=== PATIENT | male | born 1950 | race Caucasian/White ===

== ENCOUNTER 2017-05-10 07:19 | Emergency (ER) | payer MEDICARE, MEDICAID ==
[~2017-05-10] VITALS: Ht 182.9 cm; Wt 98.0 kg
[~2017-05-10 07:19] MED LIST: AMLO5TAB PO; BISO1TAB39 PO; LIT300C PO; LOPE2TAB25 PO; MIRT45TA PO; QUET300T3 PO; RANI150T8 PO; SIMV20TA5 PO; TEMA15CA5 PO
[2017-05-10 07:21] VITALS: BP 145/84
[2017-05-10] MEDS ORDERED: CEPH-572 PO (07:40)
== END 2017-05-10 07:48 | disposition home or self-care (01) ==
LOC: ER 07:20
DX: L76.82 Other postprocedural complications of skin and subcutaneous tissue (principal); I10 Essential (primary) hypertension; G89.29 Other chronic pain; F17.210 Nicotine dependence, cigarettes, uncomplicated
CPT/HCPCS: 99283; A6253; A6449

== ENCOUNTER 2018-01-17 08:04 | Emergency (ER) | payer MEDICARE, MEDICAID ==
[~2018-01-17] VITALS: Ht 182.9 cm; Wt 109.0 kg
[2018-01-17 08:19] VITALS: BP 144/72
[2018-01-17] MEDS ORDERED: TRIA15CR61 TOP (08:34)
[2018-01-17] MEDS ORDERED: FLUC150T66 PO (08:34)
== END 2018-01-17 08:42 | disposition home or self-care (01) ==
LOC: ER 08:04
DX: B35.3 Tinea pedis (principal); R23.4 Changes in skin texture; I10 Essential (primary) hypertension; G89.29 Other chronic pain; Z98.890 Other specified postprocedural states; Z88.8 Allergy status to other drugs, medicaments and biological substances; Z79.899 Other long term (current) drug therapy
CPT/HCPCS: 99283

== ENCOUNTER 2018-05-21 06:55 | Inpatient (IN) | payer MEDICARE, MEDICAID ==
[~2018-05-21] VITALS: Ht 180.3 cm; Wt 106.0 kg
[~2018-05-21 06:55] MED LIST changes: -QUET300T3 PO; +QUET300T5 PO
[2018-05-21] MEDS ORDERED: ondansetron/PF 4mg/2ml inj IV ONE (07:05)
[2018-05-21] MEDS ORDERED: morphine 4 MG/ML inj SYRINge IV PRN (07:05)
[2018-05-21] MEDS ORDERED: ketorolac tromethamine 15mg/ml inj. IV ONE (07:05)
[2018-05-21 07:47] LABS: BASOPHILS # (AUTO) 0.1 X10'3 (0-0.2); BASOPHILS % (AUTO) 0.3 % (0-1); EOSINOPHILS # (AUTO) 0.2 X10'3 (0-0.9); EOSINOPHILS % (AUTO) 1.1 % (0-6); HEMATOCRIT 47.1 % (42.0-52.0); HEMOGLOBIN 15.8 g/dl (14.0-17.9); LYMPHOCYTES # (AUTO) 2.6 X10'3 (1.1-4.8); LYMPHOCYTES % (AUTO) 15.9 % (21-51); MEAN CORPUSCULAR HGB CONC 33.4 g/dL (33.0-36.5); MEAN CORPUSCULAR VOLUME 89.7 FL (78-98); MEAN PLATELET VOLUME 7.8 FL (7.4-10.4); MONOCYTES # (AUTO) 1.2 X10'3 (0-0.9); MONOCYTES % (AUTO) 7.5 % (2-12); NEUTROPHILS # (AUTO) 12.5 X10'3 (1.8-7.7); NEUTROPHILS % (AUTO) 75.2 % (42-75); PLATELET COUNT 342 X10'3 (140-440); RED BLOOD COUNT 5.25 X10'6 (4.70-6.10); RED CELL DISTRIBUTION WIDTH 13.8 % (11.5-14.5); WHITE BLOOD COUNT 16.7 X10'3 (4.5-11.0)
[2018-05-21 07:53] LABS: ALANINE AMINOTRANSFERASE 42 U/L (12-78); ALBUMIN 4.1 G/DL (3.4-5.0); ALKALINE PHOSPHATASE 78 IU/L (46-116); ANION GAP 12 (8-16); ASPARTATE AMINO TRANSFERASE 17 U/L (10-37); BILIRUBIN,TOTAL 0.3 MG/DL (0.1-1.0); BLOOD UREA NITROGEN 22 MG/DL (7-18); BUN/CREATININE RATIO 20.2 (5.4-32.0); CALCIUM 10.1 MG/DL (8.5-10.1); CHLORIDE 106 MMOL/L (99-107); CREATININE 1.09 MG/DL (0.60-1.10); GLUCOSE 130 MG/DL (70-104); LIPASE 190 U/L (73-393); POTASSIUM 3.9 MMOL/L (3.5-5.1); SODIUM 142 MMOL/L (135-145); TOTAL CARBON DIOXIDE 24.5 MMOL/L (24-32); TOTAL PROTEIN 8.2 G/DL (6.4-8.2); eGFR 67 ML/MIN
[2018-05-21] MEDS ORDERED: piperacillin/tazo 3.375gm/50ml 50 ML IV ONE (08:15)
[2018-05-21] MEDS ORDERED: FENO145T38 PO (08:26)
[2018-05-21] MEDS ORDERED: magnesium 4gm in 100ml NS 100 ML IV PRN (08:30)
[2018-05-21] MEDS ORDERED: potassium Cl 20 mEq SR tablet PO PRN ×2 (08:30)
[2018-05-21] MEDS ORDERED: ondansetron/PF 4mg/2ml inj IV PRN (08:30)
[2018-05-21] MEDS ORDERED: potassium Cl 40MEQ/NS 500ml 500 ML IV PRN ×2 (08:30)
[2018-05-21] MEDS ORDERED: magnesium 2GM in 50ml NS 50 ML IV PRN (08:30)
[2018-05-21] MEDS ORDERED: morphine 2 MG/ML inj. syringe IV PRN (08:30)
[2018-05-21] MEDS ORDERED: magnesium Cl slow-release 64mg tablet PO PRN (08:30)
[2018-05-21 08:36] LABS: CLARITY,URINE CLEAR (Clear); COLOR,URINE YELLOW (Yellow); GLUCOSE, URINE NEGATIVE (Neg); KETONES,URINE NEGATIVE (Neg); LEUKOCYTE ESTERASE ,URINE NEGATIVE (Neg); NITRITES, URINE NEGATIVE (Neg); OCCULT BLOOD,URINE NEGATIVE (Neg); PH,URINE 5.5 (4.8-8.0); PROTEIN,URINE NEGATIVE (Neg); UA COLLECTION TYPE CLN CATCH MIDSTREAM; UROBILINOGEN,URINE 0.2 E.U/dL (0.2-1.0)
[2018-05-21] MEDS: normal saline 1000ml 1,000 ML IV SCH ×2 (08:41→21:03)
--- NOTE | 2018-05-21 14:18 | NUR ---
called to give report, was told that KELECHI Price can not be found, and they willhave her call me back
[2018-05-21 14:45] VITALS: BP 138/68
[2018-05-21] MEDS ORDERED: pantoprazole 40 MG vial IV ONE (15:30)
--- NOTE | 2018-05-21 15:53 | NUR ---
Paged Dr Thao PAGER ID: [phone] MESSAGE: Dee [phone]. Re Delfino Serrano.[id number] C/O headache, patient asking for ibuprofen. Only morphine ordered. Can you order ibuprofen or Tylenol?
[2018-05-21] MEDS: metroNIDAZOLE-Flagyl 500mg/NS 100 ML IV SCH (16:16)
[2018-05-21 17:00] VITALS: BP 130/89
--- NOTE | 2018-05-21 18:25 | NUR ---
Problems reprioritized. Patient report given, questions answered & plan of care reviewed with Lyndsey LORENZ.
[2018-05-21] MEDS ORDERED: HYDROcodone/acetaminophen 10/325mg tab PO PRN (19:25)
--- NOTE | 2018-05-21 19:28 | NUR ---
Patient in room ORTHO 4014. I have received report from KELECHI Price and had the opportunity to ask questions and assume patient care.
[2018-05-21] MEDS: HYDROcodone/acetaminophen 5mg/325mg tablet PO PRN (21:03)
[2018-05-21] MEDS: famotidine 20mg tablet PO SCH (21:21)
[2018-05-21 22:00] VITALS: BP 133/61
[2018-05-22] MEDS: normal saline 1000ml 1,000 ML IV SCH ×3 (04:30→22:48)
--- NOTE | 2018-05-22 06:49 | NUR ---
Patient report given to KELECHI Reid, questions answered & plan of care reviewed.
[2018-05-22 06:59] LABS: BASOPHILS % (AUTO) 0.5 % (0-1); EOSINOPHILS # (AUTO) 0.3 X10'3 (0-0.9); EOSINOPHILS % (AUTO) 2.7 % (0-6); HEMATOCRIT 44.2 % (42.0-52.0); LYMPHOCYTES # (AUTO) 3.5 X10'3 (1.1-4.8); MEAN CORPUSCULAR HEMOGLOBIN 30.6 PG (27.0-31.0); MEAN CORPUSCULAR HGB CONC 33.9 g/dL (33.0-36.5); MEAN CORPUSCULAR VOLUME 90.4 FL (78-98); MEAN PLATELET VOLUME 8.1 FL (7.4-10.4); MONOCYTES % (AUTO) 9.9 % (2-12); NEUTROPHILS # (AUTO) 5.4 X10'3 (1.8-7.7); NEUTROPHILS % (AUTO) 52.9 % (42-75); PLATELET COUNT 306 X10'3 (140-440); RED CELL DISTRIBUTION WIDTH 13.8 % (11.5-14.5); WHITE BLOOD COUNT 10.2 X10'3 (4.5-11.0)
--- NOTE | 2018-05-22 06:59 | NUR ---
Patient in room ORTHO 4014. I have received report from Adry LORENZ and Kiana LORENZ and had the opportunity to ask questions and assume patient care.
[2018-05-22 07:45] LABS: ALBUMIN 3.6 G/DL (3.4-5.0); ANION GAP 11 (8-16); BLOOD UREA NITROGEN 15 MG/DL (7-18); CALCIUM 9.3 MG/DL (8.5-10.1); CHLORIDE 110 MMOL/L (99-107); GLUCOSE 100 MG/DL (70-104); POTASSIUM 3.8 MMOL/L (3.5-5.1); SODIUM 144 MMOL/L (135-145); TOTAL CARBON DIOXIDE 23.5 MMOL/L (24-32); eGFR 74 ML/MIN
[2018-05-22] MEDS ORDERED: HYDROCHLOROTHIAZIDE PO SCH (08:00)
[2018-05-22] MEDS ORDERED: non-formulary drug (Amlodipine Besylate 2 TABLET) PO SCH (08:00)
[2018-05-22] MEDS: K and/or MAG REPLACEMENT MC SCH (08:00)
[2018-05-22] MEDS ORDERED: famotidine 20mg tablet PO SCH (08:00)
[2018-05-22] MEDS ORDERED: BISOPROL PO SCH (08:00)
[2018-05-22] MEDS: metroNIDAZOLE-Flagyl 500mg/NS 100 ML IV SCH ×2 (08:29)
[2018-05-22] MEDS: famotidine 20mg tablet PO SCH (08:32)
[2018-05-22] MEDS: amLODIPine 5mg tablet PO SCH (08:32)
[2018-05-22] MEDS: HYDROchlorothiazide 12.5mg capsule PO SCH (08:33)
[2018-05-22] MEDS: atenolol 50mg tablet PO SCH (08:38)
[2018-05-22] MEDS: HYDROcodone/acetaminophen 5mg/325mg tablet PO PRN ×2 (08:39→13:08)
[2018-05-22] MEDS: levoFLOXACIN-Levaquin 500mg/D5 100 ML IV SCH (08:41)
[2018-05-22 10:00] VITALS: BP 148/78
[2018-05-22] MEDS: metroNIDAZOLE 500mg tablet PO SCH ×2 (15:19→23:11)
--- NOTE | 2018-05-22 15:45 | NUR ---
Left Lateral Flank Pain is well controlled with One [place] 5/325mg Tab. every 4 hours.
[2018-05-22 17:00] VITALS: BP 126/71
[2018-05-22 18:00] VITALS: BP 126/71
--- NOTE | 2018-05-22 18:30 | NUR ---
Patient in room ORTHO 4014. I have received report from KELECHI Reid and had the opportunity to ask questions and assume patient care.
[2018-05-22] MEDS: lactobacillus rhamnosus 10,000 MMU CELLS/CAPSULE PO SCH (19:55)
[2018-05-22 22:00] VITALS: BP 148/71
[2018-05-22] MEDS ORDERED: temazepam 15mg capsule PO PRN (22:25)
--- NOTE | 2018-05-23 06:25 | NUR ---
Problems reprioritized. Patient report given, questions answered & plan of care reviewed with KELECHI Gonzalez.
[2018-05-23 06:53] LABS: BASOPHILS % (AUTO) 0.4 % (0-1); EOSINOPHILS # (AUTO) 0.3 X10'3 (0-0.9); EOSINOPHILS % (AUTO) 3.2 % (0-6); HEMATOCRIT 43.4 % (42.0-52.0); HEMOGLOBIN 14.7 g/dl (14.0-17.9); LYMPHOCYTES # (AUTO) 2.8 X10'3 (1.1-4.8); LYMPHOCYTES % (AUTO) 30.8 % (21-51); MEAN CORPUSCULAR HEMOGLOBIN 30.7 PG (27.0-31.0); MEAN CORPUSCULAR HGB CONC 33.8 g/dL (33.0-36.5); MEAN CORPUSCULAR VOLUME 90.8 FL (78-98); MEAN PLATELET VOLUME 7.8 FL (7.4-10.4); MONOCYTES # (AUTO) 0.8 X10'3 (0-0.9); MONOCYTES % (AUTO) 9.2 % (2-12); NEUTROPHILS # (AUTO) 5.1 X10'3 (1.8-7.7); NEUTROPHILS % (AUTO) 56.4 % (42-75); PLATELET COUNT 301 X10'3 (140-440); RED BLOOD COUNT 4.78 X10'6 (4.70-6.10); RED CELL DISTRIBUTION WIDTH 13.6 % (11.5-14.5); WHITE BLOOD COUNT 9.1 X10'3 (4.5-11.0)
[2018-05-23 07:04] LABS: ALBUMIN 3.4 G/DL (3.4-5.0); ANION GAP 12 (8-16); BLOOD UREA NITROGEN 14 MG/DL (7-18); CALCIUM 9.2 MG/DL (8.5-10.1); CHLORIDE 109 MMOL/L (99-107); GLUCOSE 92 MG/DL (70-104); MAGNESIUM 1.9 MG/DL (1.5-2.4); POTASSIUM 3.5 MMOL/L (3.5-5.1); SODIUM 144 MMOL/L (135-145); TOTAL CARBON DIOXIDE 22.9 MMOL/L (24-32); eGFR 74 ML/MIN
[2018-05-23] MEDS ORDERED: pantoprazole 40mg Tablet.DR PO SCH (07:30)
[2018-05-23 08:00] VITALS: BP_SYST 155
[2018-05-23] MEDS: HYDROchlorothiazide 12.5mg capsule PO SCH (08:00)
[2018-05-23] MEDS: atenolol 50mg tablet PO SCH (08:00)
[2018-05-23] MEDS: K and/or MAG REPLACEMENT MC SCH (08:00)
[2018-05-23] MEDS: levoFLOXACIN-Levaquin 500mg/D5 100 ML IV SCH (08:19)
[2018-05-23] MEDS: lactobacillus rhamnosus 10,000 MMU CELLS/CAPSULE PO SCH (08:19)
[2018-05-23] MEDS: metroNIDAZOLE 500mg tablet PO SCH (08:20)
[2018-05-23] MEDS: amLODIPine 5mg tablet PO SCH (08:28)
--- NOTE | 2018-05-23 11:45 | NUR ---
Received discharge orders. Chrystal social welfare clerk called in RX to [facility]. IV RFA dc'd with cannula intact. No redness/swelling at insertion site. Reviewed discharge instructions with pt. Pt discharged via w/c to front lobby to personal vehicle.
[2018-05-23] MEDS ORDERED: PANT40TA4 PO (11:59)
[2018-05-23] MEDS ORDERED: LEVO500T2 PO (11:59)
[2018-05-23] MEDS ORDERED: METR500T PO (11:59)
--- NOTE | 2018-05-23 18:36 | NUR ---
Pt d/c prior to RD visit for low-fiber diet guidelines r/t DX acute diverticulitis. Written ed w/ RD contact information mailed to pt home address on EMR. Addendum: 05/23/18 at [address] Amended: Links added.
== END 2018-05-23 12:50 | disposition home or self-care (01) | DRG 392 ==
LOC: ER 06:55 → ORTHO 4S 14:46 → CMPBEDREQ 05-23 01:25
PROVIDERS: ADMIT Internal Medicine; ATTEND Internal Medicine
DX: K57.92 Diverticulitis of intestine, part unspecified, without perforation or abscess without bleeding (principal); I10 Essential (primary) hypertension; K21.9 Gastro-esophageal reflux disease without esophagitis; E78.5 Hyperlipidemia, unspecified
CPT/HCPCS: 36415; 74176; 80048; 80053; 81003; 83690; 83735; 85025; 87070; 96365; 96375; 99285; C9113; G0378; J1885; J1956; J2270; J2405; J2543; J3490; J7030

== ENCOUNTER 2018-09-09 09:19 | Emergency (ER) | payer MEDICARE, MEDICAID ==
[~2018-09-09] VITALS: Ht 180.3 cm; Wt 101.0 kg
[~2018-09-09 09:19] MED LIST changes: +FENO145T38 PO; -LIT300C PO; -LOPE2TAB25 PO; +METR500T PO; -MIRT45TA PO; +PANT40TA4 PO; -QUET300T5 PO; -RANI150T8 PO; -SIMV20TA5 PO; -TEMA15CA5 PO
[2018-09-09] MEDS ORDERED: ketorolac trometh inj. 60 MG/2 ML VIAL IM ONE (09:40)
[2018-09-09 09:57] LABS: CLARITY,URINE CLEAR (Clear); COLOR,URINE YELLOW (Yellow); GLUCOSE, URINE NEGATIVE (Neg); KETONES,URINE NEGATIVE (Neg); LEUKOCYTE ESTERASE ,URINE NEGATIVE (Neg); NITRITES, URINE NEGATIVE (Neg); OCCULT BLOOD,URINE NEGATIVE (Neg); PROTEIN,URINE NEGATIVE (Neg); UROBILINOGEN,URINE 0.2 E.U/dL (0.2-1.0)
[2018-09-09 10:01] LABS: UA COLLECTION TYPE CLN CATCH MIDSTREAM
[2018-09-09 10:07] LABS: BASOPHILS # (AUTO) 0.1 X10'3 (0-0.2); BASOPHILS % (AUTO) 0.6 % (0-1); EOSINOPHILS # (AUTO) 0.1 X10'3 (0-0.9); EOSINOPHILS % (AUTO) 1.2 % (0-6); HEMATOCRIT 44.7 % (42.0-52.0); HEMOGLOBIN 15.1 g/dl (14.0-17.9); LYMPHOCYTES # (AUTO) 3.1 X10'3 (1.1-4.8); LYMPHOCYTES % (AUTO) 31.7 % (21-51); MEAN CORPUSCULAR HEMOGLOBIN 30.2 PG (27.0-31.0); MEAN CORPUSCULAR HGB CONC 33.7 g/dL (33.0-36.5); MEAN CORPUSCULAR VOLUME 89.7 FL (78-98); MEAN PLATELET VOLUME 7.7 FL (7.4-10.4); MONOCYTES # (AUTO) 0.8 X10'3 (0-0.9); MONOCYTES % (AUTO) 8.2 % (2-12); NEUTROPHILS # (AUTO) 5.6 X10'3 (1.8-7.7); NEUTROPHILS % (AUTO) 58.3 % (42-75); PLATELET COUNT 323 X10'3 (140-440); RED BLOOD COUNT 4.98 X10'6 (4.70-6.10); RED CELL DISTRIBUTION WIDTH 14.6 % (11.5-14.5); WHITE BLOOD COUNT 9.7 X10'3 (4.5-11.0)
[2018-09-09 10:21] LABS: ALANINE AMINOTRANSFERASE 40 U/L (12-78); ALBUMIN 3.9 G/DL (3.4-5.0); ALKALINE PHOSPHATASE 61 IU/L (46-116); ANION GAP 11 (8-16); ASPARTATE AMINO TRANSFERASE 17 U/L (10-37); BILIRUBIN,TOTAL 0.3 MG/DL (0.1-1.0); BLOOD UREA NITROGEN 16 MG/DL (7-18); BUN/CREATININE RATIO 16.2 (5.4-32.0); CALCIUM 8.9 MG/DL (8.5-10.1); CHLORIDE 108 MMOL/L (99-107); CREATININE 0.99 MG/DL (0.60-1.10); GLUCOSE 97 MG/DL (70-104); LIPASE 170 U/L (73-393); POTASSIUM 3.7 MMOL/L (3.5-5.1); SODIUM 143 MMOL/L (135-145); TOTAL CARBON DIOXIDE 24.1 MMOL/L (24-32); TOTAL PROTEIN 7.7 G/DL (6.4-8.2); eGFR 75 ML/MIN
[2018-09-09 11:03] VITALS: BP 134/87
== END 2018-09-09 11:21 | disposition home or self-care (01) ==
LOC: ER 09:20
DX: R10.814 Left lower quadrant abdominal tenderness (principal); M54.5 Low back pain; E78.00 Pure hypercholesterolemia, unspecified; I10 Essential (primary) hypertension; G89.29 Other chronic pain; F31.9 Bipolar disorder, unspecified; F12.90 Cannabis use, unspecified, uncomplicated; Z79.899 Other long term (current) drug therapy; Z98.890 Other specified postprocedural states
CPT/HCPCS: 36415; 74176; 80053; 81003; 83690; 85025; 96372; 99284; J1885

== ENCOUNTER 2018-12-01 10:19 | Emergency (ER) | payer MEDICARE, MEDICAID ==
[~2018-12-01] VITALS: Ht 180.3 cm; Wt 106.8 kg
[2018-12-01 10:23] VITALS: BP 120/66
[2018-12-01 11:29] LABS: BASOPHILS # (AUTO) 0.1 X10'3 (0-0.2); BASOPHILS % (AUTO) 0.5 % (0-1); EOSINOPHILS # (AUTO) 0.1 X10'3 (0-0.9); EOSINOPHILS % (AUTO) 0.8 % (0-6); HEMATOCRIT 44.4 % (42.0-52.0); HEMOGLOBIN 15.3 g/dl (14.0-17.9); LYMPHOCYTES # (AUTO) 3.6 X10'3 (1.1-4.8); LYMPHOCYTES % (AUTO) 32.9 % (21-51); MEAN CORPUSCULAR HEMOGLOBIN 30.9 PG (27.0-31.0); MEAN CORPUSCULAR HGB CONC 34.4 g/dL (33.0-36.5); MEAN CORPUSCULAR VOLUME 89.9 FL (78-98); MONOCYTES # (AUTO) 0.8 X10'3 (0-0.9); MONOCYTES % (AUTO) 7.3 % (2-12); NEUTROPHILS # (AUTO) 6.4 X10'3 (1.8-7.7); NEUTROPHILS % (AUTO) 58.5 % (42-75); PLATELET COUNT 347 X10'3 (140-440); RED BLOOD COUNT 4.94 X10'6 (4.70-6.10); RED CELL DISTRIBUTION WIDTH 13.4 % (11.5-14.5)
[2018-12-01 11:41] LABS: ALANINE AMINOTRANSFERASE 31 U/L (12-78); ALBUMIN 4.2 G/DL (3.4-5.0); ALKALINE PHOSPHATASE 70 IU/L (46-116); ANION GAP 13 (8-16); ASPARTATE AMINO TRANSFERASE 20 U/L (10-37); BILIRUBIN,TOTAL 0.5 MG/DL (0.1-1.0); BLOOD UREA NITROGEN 20 MG/DL (7-18); CALCIUM 9.4 MG/DL (8.5-10.1); CHLORIDE 107 MMOL/L (99-107); CREATININE 1.11 MG/DL (0.60-1.10); GLUCOSE 113 MG/DL (70-104); POTASSIUM 3.7 MMOL/L (3.5-5.1); SODIUM 144 MMOL/L (135-145); TOTAL CARBON DIOXIDE 23.9 MMOL/L (24-32); TOTAL PROTEIN 8.4 G/DL (6.4-8.2); eGFR 66 ML/MIN
[2018-12-01] MEDS ORDERED: HYDR25SU32 RC (11:57)
[2018-12-01] MEDS ORDERED: DOCU-148 PO (11:57)
== END 2018-12-01 12:17 | disposition home or self-care (01) ==
LOC: ER 10:20
DX: K92.2 Gastrointestinal hemorrhage, unspecified (principal); I25.10 Atherosclerotic heart disease of native coronary artery without angina pectoris; E78.00 Pure hypercholesterolemia, unspecified; I10 Essential (primary) hypertension; E11.9 Type 2 diabetes mellitus without complications; G89.29 Other chronic pain; F31.9 Bipolar disorder, unspecified; Z98.890 Other specified postprocedural states; Z87.891 Personal history of nicotine dependence; Z88.8 Allergy status to other drugs, medicaments and biological substances; Z79.899 Other long term (current) drug therapy
CPT/HCPCS: 36415; 80053; 85025; 99283

== ENCOUNTER 2018-12-10 07:15 | Emergency (ER) | payer MEDICARE, MEDICAID ==
[~2018-12-10] VITALS: Ht 180.3 cm; Wt 97.3 kg
[~2018-12-10 07:15] MED LIST changes: +DOCU-148 PO; +HYDR25SU32 RC
[2018-12-10] MEDS ORDERED: LORazepam 1 MG tablet PO ONE ×2 (07:45→09:55)
--- NOTE | 2018-12-10 07:45 | NUR ---
Pt brought over from Triage. He is angry over an argument he had with a sister that he lives with. He reports, "I have had SI for the past 20 years." He is pacing in the area of his bed.
--- NOTE | 2018-12-10 07:55 | NUR ---
Ativan 1mg given per orders from Dr. Mayfield.
[2018-12-10 08:22] LABS: CLARITY,URINE CLEAR (Clear); COLOR,URINE YELLOW (Yellow); GLUCOSE, URINE NEGATIVE (Neg); KETONES,URINE NEGATIVE (Neg); LEUKOCYTE ESTERASE ,URINE NEGATIVE (Neg); NITRITES, URINE NEGATIVE (Neg); OCCULT BLOOD,URINE NEGATIVE (Neg); PH,URINE 6.5 (4.8-8.0); PROTEIN,URINE NEGATIVE (Neg); UROBILINOGEN,URINE 0.2 E.U/dL (0.2-1.0)
[2018-12-10 08:23] LABS: UA COLLECTION TYPE CLN CATCH MIDSTREAM
--- NOTE | 2018-12-10 08:30 | NUR ---
Pt continues to sit at his bedside and verbally express his anger and frustrations going on with his sister. Encouraged him to lay down on his bed. Pt declined states, "when I'm upset it is better I pace."
[2018-12-10 08:34] LABS: URINE AMPHETAMINE SCREEN NEGATIVE (Neg); URINE BARBITUATE SCREEN NEGATIVE (Neg); URINE BENZODIAZEPINES SCREEN NEGATIVE (Neg); URINE CANNABINOID SCREEN POSITIVE (Neg); URINE COCAINE SCREEN NEGATIVE (Neg); URINE METHADONE SCREEN NEGATIVE (Neg); URINE OPIATE SCREEN NEGATIVE (Neg); URINE PHENCYCLIDINE SCREEN NEGATIVE (Neg)
[2018-12-10 08:39] LABS: BASOPHILS % (AUTO) 0.5 % (0-1); EOSINOPHILS # (AUTO) 0.1 X10'3 (0-0.9); EOSINOPHILS % (AUTO) 1.3 % (0-6); HEMATOCRIT 44.2 % (42.0-52.0); HEMOGLOBIN 15.4 g/dl (14.0-17.9); LYMPHOCYTES # (AUTO) 2.5 X10'3 (1.1-4.8); LYMPHOCYTES % (AUTO) 27.4 % (21-51); MEAN CORPUSCULAR HEMOGLOBIN 31.5 PG (27.0-31.0); MEAN CORPUSCULAR HGB CONC 34.9 g/dL (33.0-36.5); MEAN CORPUSCULAR VOLUME 90.3 FL (78-98); MEAN PLATELET VOLUME 7.8 FL (7.4-10.4); MONOCYTES # (AUTO) 0.8 X10'3 (0-0.9); MONOCYTES % (AUTO) 8.3 % (2-12); NEUTROPHILS # (AUTO) 5.8 X10'3 (1.8-7.7); NEUTROPHILS % (AUTO) 62.5 % (42-75); PLATELET COUNT 342 X10'3 (140-440); RED BLOOD COUNT 4.89 X10'6 (4.70-6.10); RED CELL DISTRIBUTION WIDTH 13.7 % (11.5-14.5); WHITE BLOOD COUNT 9.2 X10'3 (4.5-11.0)
[2018-12-10 08:54] LABS: ALANINE AMINOTRANSFERASE 28 U/L (12-78); ALBUMIN/GLOBULIN RATIO 0.9 (1.1-1.5); ALKALINE PHOSPHATASE 73 IU/L (46-116); ANION GAP 11 (8-16); ASPARTATE AMINO TRANSFERASE 18 U/L (10-37); BILIRUBIN,TOTAL 0.4 MG/DL (0.1-1.0); BLOOD UREA NITROGEN 13 MG/DL (7-18); BUN/CREATININE RATIO 12.3 (5.4-32.0); CALCIUM 9.4 MG/DL (8.5-10.1); CHLORIDE 106 MMOL/L (99-107); CREATININE 1.06 MG/DL (0.60-1.10); GLUCOSE 125 MG/DL (70-104); POTASSIUM 3.9 MMOL/L (3.5-5.1); SODIUM 142 MMOL/L (135-145); TOTAL CARBON DIOXIDE 24.9 MMOL/L (24-32); TOTAL PROTEIN 8.3 G/DL (6.4-8.2); eGFR 69 ML/MIN
[2018-12-10 09:04] LABS: ACETAMINOPHEN < 2.0 UG/ML (10-30); ETHANOL < 0.010 GM/DL (0.0-0.010)
[2018-12-10] MEDS ORDERED: haloperidol 5mg tablet PO ONE (09:50)
--- NOTE | 2018-12-10 09:54 | NUR ---
PACKET FAXED TO [facility]
[2018-12-10] MEDS ORDERED: diphenhydrAMINE 25mg capsule PO ONE (09:55)
--- NOTE | 2018-12-10 10:15 | NUR ---
Pt paces up and down at the side of his bed. Meds given as prescribed.
--- NOTE | 2018-12-10 12:30 | NUR ---
Pt sister agreed to bring in his Home Medications MAX. Pt is restless but quiet at his bedside.
[2018-12-10] MEDS ORDERED: FENO145T25 (13:11)
[2018-12-10] MEDS ORDERED: BISO-1 (13:11)
[2018-12-10] MEDS ORDERED: QUET50TA79 (13:11)
[2018-12-10] MEDS ORDERED: TEMA15CA (13:11)
[2018-12-10] MEDS ORDERED: RANI150T8 (13:11)
[2018-12-10] MEDS ORDERED: AMLO10TA13 (13:11)
[2018-12-10] MEDS ORDERED: AMLO2.5T4 PO (13:59)
[2018-12-10] MEDS ORDERED: BISO1TAB4 PO (14:01)
[2018-12-10] MEDS ORDERED: RANI150C4 PO (14:01)
[2018-12-10] MEDS ORDERED: TEMA15CA5 PO (14:01)
[2018-12-10] MEDS ORDERED: QUET50TA15 PO (14:02)
--- NOTE | 2018-12-10 14:30 | NUR ---
Patient resting comfortably. no needs at this time.
--- NOTE | 2018-12-10 17:31 | NUR ---
Pt's sister here with pt's home medications. Pt and his sister do not get along. There was an arguement regarding their house they inherited and the sister was asked to leave. Pt remains on his bed resting.
[2018-12-10] MEDS ORDERED: quetiapine 100mg tablet PO ONE (18:45)
[2018-12-10] MEDS ORDERED: temazepam 15mg capsule PO ONE (18:45)
--- NOTE | 2018-12-10 18:51 | NUR ---
This patient states he desires his nightime medications now. He is angry but cooperative. Patient is well oriented. This radio news writer spoke with ER MD Santos. Now orders recieved for patients Seroquel and an additional Restoril order was placed. Patients Seroquel dose for 2100 hours was cancelled. Patients 2100 hour dose of Restoril will remain in place and used PRN or DC'd at that time.
[2018-12-10] MEDS: famotidine 20mg tablet PO SCH (20:00)
[2018-12-10] MEDS ORDERED: QUEtiapine 25mg tablet PO SCH (21:00)
[2018-12-10] MEDS ORDERED: temazepam 15mg capsule PO SCH (21:00)
[2018-12-10] MEDS ORDERED: QUETIAPINE 50 MG PO SCH (21:00)
--- NOTE | 2018-12-11 00:49 | NUR ---
Patient is sleeping quietly, in view from nursing station. Second dose of Restoril held at this time.
--- NOTE | 2018-12-11 02:20 | NUR ---
Patient awakens, believes it is morning. States he has been sleeping well. Returns to sleep.
[2018-12-11 05:30] VITALS: BP 128/78
--- NOTE | 2018-12-11 06:49 | NUR ---
Client sleeping on left side in no apparent distress. Respirations are even and unlabored.
--- NOTE | 2018-12-11 07:44 | NUR ---
Pt is awake sitting quietly.
--- NOTE | 2018-12-11 07:54 | NUR ---
pt up to use restroom.
[2018-12-11] MEDS ORDERED: amLODIPine 5mg tablet PO SCH (08:00)
[2018-12-11] MEDS ORDERED: atenolol 50mg tablet PO SCH (08:00)
[2018-12-11] MEDS: famotidine 20mg tablet PO SCH (08:33)
--- NOTE | 2018-12-11 08:34 | NUR ---
Devyn from [facility] here speaking with client. Client states he feels better and may want to go home today.
--- NOTE | 2018-12-11 08:38 | NUR ---
[facility] note: Spoke with pt about voluntary admission. Pt states he feels better today and needs to go home to pay the bills. Pt states if when he is evaluated and they place him on a hold then he would like to come up. Dr Mckenzie states acceptance either way. Awaiting [facility] eval.
--- NOTE | 2018-12-11 09:14 | NUR ---
Patient is awake sitting quietly.
--- NOTE | 2018-12-11 10:28 | NUR ---
Pt sitting up in bed
--- NOTE | 2018-12-11 11:24 | NUR ---
Pt has been accepted at [facility] according to call form Nevin at [facility]
[2018-12-12] MEDS ORDERED: FENO145T25 PO (10:33)
== END 2018-12-11 13:23 ==
LOC: ER 07:16
DX: R45.851 Suicidal ideations (principal); I25.10 Atherosclerotic heart disease of native coronary artery without angina pectoris; E78.00 Pure hypercholesterolemia, unspecified; I10 Essential (primary) hypertension; E11.9 Type 2 diabetes mellitus without complications; G89.29 Other chronic pain; F31.9 Bipolar disorder, unspecified; Z98.890 Other specified postprocedural states; Z88.8 Allergy status to other drugs, medicaments and biological substances; Z79.899 Other long term (current) drug therapy
CPT/HCPCS: 36415; 80053; 80305; 80320; 80329; 81003; 84443; 85025; 99285; Q0163

== ENCOUNTER 2018-12-11 10:43 | Inpatient (IN) | payer MEDICARE, MEDICAID ==
[~2018-12-11] VITALS: Ht 180.3 cm; Wt 97.0 kg
[~2018-12-11 10:43] MED LIST changes: +AMLO2.5T4 PO; -AMLO5TAB PO; -BISO1TAB39 PO; +BISO1TAB4 PO; -DOCU-148 PO; -FENO145T38 PO; -HYDR25SU32 RC; -METR500T PO; -PANT40TA4 PO; +QUET50TA15 PO; +RANI150C4 PO; +TEMA15CA5 PO
[2018-12-11] MEDS ORDERED: NICOTINE POLACRILEX 2 MG LOZENGE BC PRN (12:20)
[2018-12-11] MEDS ORDERED: hydrOXYzine 25 MG tablet PO PRN (12:20)
[2018-12-11] MEDS ORDERED: mag hydrox/Alum hydrox/simeth 30ml oral suspension PO PRN (12:20)
[2018-12-11] MEDS ORDERED: magnesium hydroxide 30ml (MOM) UD suspension PO PRN (12:20)
[2018-12-11] MEDS ORDERED: loperamide 2mg capsule PO PRN (12:20)
[2018-12-11] MEDS ORDERED: LORazepam 1 MG tablet PO PRN (12:20)
[2018-12-11] MEDS ORDERED: acetaminophen 325mg tablet PO PRN ×2 (12:20)
--- NOTE | 2018-12-11 15:13 | NUR ---
Admission note: Pt admitted to [facility] on 5150 for DTS from our ER at 1323. Pt has suicidal ideation and a plan of running at a buffer copper so they would shoot him. Pt is impulsively giving his house away to his sister and nephews. Pt started selling his belongings. Pt does not have a good safety plan. Pt recently had an argument with his sister who lives with him in his inherited home. Pt stopped taking his Barber. Pt lost his psychologist recently and had not got a new one yet. Pt has history of [place], depression, Bipolar..
[2018-12-11 15:35] VITALS: BP 145/98
[2018-12-11] MEDS ORDERED: FLU VACC QS 2019-20 (6 MOS UP) 60 MCG/0.5 ML VIAL IMVAC ONE (15:45)
[2018-12-11 20:00] VITALS: BP 129/76
[2018-12-11] MEDS: QUEtiapine 25mg tablet PO SCH (20:14)
[2018-12-11] MEDS: famotidine 20mg tablet PO SCH (20:14)
[2018-12-11] MEDS: temazepam 15mg capsule PO SCH (20:14)
--- NOTE | 2018-12-12 03:42 | NUR ---
Nursing Progress Note: Delfino Serrano Legal hold: 5150 Exp 12/14 @ 1320 Client on involuntary status for DTS. Report received from KELECHI Shepard with use of SBAR. Why are they here: Patient is a 68-year-old male with bipolar disorder and depression who presents to the ED complaining of suicidal ideation with onset 2 days ago after getting into an argument with his sister. Pt states he has a plan of running to a newspaper copy editor so they would shoot him. Pt is impulsive giving his house away to his sister and nephew. Pt started selling his belongings. Pt does not have a good safety plan. Patient has been seeing a psychologist for the last 3 years for depression and suicidal thoughts. However, his psychologist recently stopped working and the patient has yet to establish with a new one. Patient reports that he stopped taking his lithium but is still taking his Seroquel. Assessment What has happened this shift: Pt was sitting in rec room watching T.V at shift change. Pt presents as linear, pleasant and cooperative. Pt denies SI at this time and doesn't engage with why he is here. Pt states "I got into an argument with my sister." "I helped raise my nephews." Pt denies A/VH. Pt appears to be minimizing his symptoms. 1:1 assessment completed at bedside. Pt medication compliant. Influenza vaccine administered to left deltoid. Pt c/o generalized pain, Tylenol administered. Pt reports some intermittent tingling in his toes - pt states he has been diagnosed with pre diabetes. S/I, H/I: Pt denies. A/VH: Pt denies. 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, no group Were meds taken: Medication compliant Any med S/E: None reported or observed Mental Status Exam Appearance: Clean, dressed appropriately in green unit scrubs Eye contact: Good Behavior: Cooperative, guarded Speech: Clear, normal rate and rythum Mood: Bright Affect: Blunted Thought process: Linear Thought Content: Unit orientation Cognition: A&O x4 Insight: Poor Judgment: Poor Interventions PRN's used: Tylenol Therapeutic interventions: 1:1 therapeutic assessment, maintained and established rapport, medication administration/education/monitoring, contracted for safety, Q15 min safety checks Restraints/seclusion/emergency medication: N/A Justification of Continued Inpatient Treatment: Pt needs medication adjustment and monitoring in a safe, therapeutic environment until stable.
[2018-12-12] MEDS: atenolol 50mg tablet PO SCH (07:45)
[2018-12-12] MEDS: HYDROchlorothiazide 25mg tablet PO SCH (07:45)
[2018-12-12] MEDS: amLODIPine 5mg tablet PO SCH (07:45)
[2018-12-12] MEDS: famotidine 20mg tablet PO SCH ×2 (07:45→20:16)
[2018-12-12] MEDS ORDERED: BISOPROLOL FUMARATE PO SCH (08:00)
[2018-12-12] MEDS ORDERED: HCTZ PO SCH (08:00)
[2018-12-12] MEDS ORDERED: HYDROchlorothiazide 12.5mg capsule PO SCH (08:00)
[2018-12-12 08:07] LABS: CHOL/HDL RATIO 5.1 (0.00-4.99); CHOLESTEROL 192 MG/DL (0-200); HDL CHOLESTEROL 38 MG/DL (35-60); LDL CHOLESTEROL 145 MG/DL (50-100); TRIGLYCERIDES 132 MG/DL (20-135)
[2018-12-12 08:20] VITALS: BP 160/83
[2018-12-12] MEDS ORDERED: FENO145T25 PO (10:33)
--- NOTE | 2018-12-12 13:45 | NUR ---
Nursing Progress Note: Legal hold: 5150 Exp 12/14 @ 1320 Client on involuntary status for DTS. Report received from KELECHI Mota with use of SBAR. Why are they here: Patient is a 68-year-old male with bipolar disorder and depression who presents to the ED complaining of suicidal ideation with onset 2 days ago after getting into an argument with his sister. Pt states he has a plan of running to a endoscopy nurse so they would shoot him. Pt is impulsive giving his house away to his sister and nephew. Pt started selling his belongings. Pt does not have a good safety plan. Patient has been seeing a psychologist for the last 3 years for depression and suicidal thoughts. However, his psychologist recently stopped working and the patient has yet to establish with a new one. Patient reports that he stopped taking his lithium but is still taking his Seroquel. Assessment What has happened this shift: Pt denied depression, SI/HI/AH/VH. Pt did c/o not sleeping well; reported falling asleep around 2200 then waking up at 0200 "then it was off and on again all night." Pt stated that its "been like this almost all my life." Pt indicated that he is here for medication adjustment, stated that the psychiatrist is going to increase his Seroquel. Pt reports that he lives with his sister and her 2 youngest boys. Pt stated, "I raised them from 8 and 9 years old, now they're 39 & 40 and still live there." Pt reported that he didn't feel this was necessarily a bad thing. S/I, H/I: Pt denies. A/VH: Pt denies. Sleep: Pt reported difficulty sleeping ADL's: Independent Group attendance: Yes Were meds taken: Yes though no routine psych meds scheduled in the morning-took his BP meds and his Pepcid. Any med S/E: None reported or observed Mental Status Exam Appearance: Clean, appropriate Eye contact: Good Behavior: Cooperative, friendly, participates in unit activities. Speech: Clear, normal rate and rhythm Mood: Good Affect: Blunted Thought process: Linear Thought Content: Hoping to get meds adjusted to help with insomnia Cognition: A&O x4 Insight: Poor Judgment: Fair Interventions PRN's used: N/A Therapeutic interventions: 1:1 assessment,establishment of rapport, encouragement to express thoughts and feelings, medication administration/education/monitoring, Q15 min safety checks Restraints/seclusion/emergency medication: N/A Justification of Continued Inpatient Treatment: Pt needs medication adjustment and monitoring in a safe, therapeutic environment until stable. Addendum: 12/12/18 at 1627 by Pastora Hightower RN (Lee) A1C results: 5.8
[2018-12-12 19:00] VITALS: BP 144/81
[2018-12-12] MEDS: QUEtiapine 25mg tablet PO SCH ×2 (20:16→21:00)
[2018-12-12] MEDS: temazepam 15mg capsule PO SCH (20:16)
[2018-12-12] MEDS ORDERED: temazepam 15mg capsule PO PRN (20:25)
[2018-12-12] MEDS ORDERED: QUEtiapine 25mg tablet PO ONE (20:40)
[2018-12-12] MEDS ORDERED: ibuprofen 200mg tablet PO PRN (20:40)
[2018-12-12] MEDS: metoprolol succinate 25mg (24-HOUR) SR. Tablet PO SCH (21:04)
[2018-12-12 21:18] VITALS: BP 150/80
[2018-12-12] MEDS: nitroGLYCERIN 0.4mg SUBLingual tab SL PRN ×3 (21:37→21:55)
[2018-12-12 23:30] VITALS: BP 105/60
--- NOTE | 2018-12-13 00:25 | NUR ---
Nursing Progress Note: Legal hold: 5150 Client on involuntary status for DTS Report received from nurse with use of SBAR: KELECHI Shepard Why are they here: Patient is a 68-year-old male with bipolar disorder and depression who self presents to the ED complaining of suicidal ideation with onset 2 days ago after getting into an argument with his sister. Pt states he has a plan of running to a freelance copywriter so they would shoot him. Pt is impulsive giving his house away to his sister and nephew. Pt started selling his belongings. Pt does not have a good safety plan. Patient has been seeing a psychologist for the last 3 years for depression and suicidal thoughts. However, his psychologist recently stopped working and the patient has yet to establish with a new one. Patient reports that he stopped taking his lithium but is still taking his Seroquel. He is on disability, has chronic pain, and multiple medical issues. Assessment What has happened this shift: Pt. sitting in the Recreation Room throughout the shift, watching TV and interacting appropriately with others. This commercial real estate underwriter introduced self and established rapport, pt. presents as cooperative, however guarded and requests HS medications MAX. He also requests PRN Motrin for chronic rt. hip pain, obtained order for 600mg TID, administered with effectiveness. At approximately 2114, pt. c/o substernal anterior chest pain with pressure 3/10. Notified Dr. Irene, and obtained V/S which were WNL. gave orders to obtain an EKG and administer SQ Nitroglycerin. Nurse also informed , that pt. reports he previously had a heart attack in 1993, has chronic angina, and uses Nitroglycerin at home. EKG read by and was WNL, no new orders given at this time. 3 doses of Nitroglycerin administered with five minutes between each per order protocol, and after third dose pt. denies any further chest pain. V/S remain WNL, will continue to monitor. 1:1 completed at bedside, pt. sitting on side of bed making "hussein" out of medication cups during assessment. He denies any further S/I at this time, states, "I want to live as long as my dad did, he was [age] years old when he ." He reports he is here on the unit because he got into an argument with his sister, states, "I would never hurt myself, it would only hurt my sister and her two sons," appears to minimize any MH s/s. Pt. reported intermittent lower back pain, PRN Tylenol administered with effectiveness. Pt. appears to be resting comfortably at this time, will continue to monitor. S/I, H/I: Denies A/VH: Denies Sleep: Pt. reports insomnia, requests PRN Temazepam, administered with effectiveness ADL's: Independent Group attendance: Attends HS snack Were meds taken: Yes Any med S/E: Pt. reports drowsiness r/t HS medications Mental Status Exam Appearance: Neat and appropriately dressed Eye contact: Fair Behavior: Cooperative, guarded, and slightly anxious at times Speech: WNL Mood: Depressed Affect: Constricted Thought process: Poverty of thought Thought Content: Appears to minimize any s/s and preoccupation with chronic pain Cognition: A&O X4 Insight: Poor Judgment: Poor Interventions PRN's used: Motrin, Tylenol, and Nitroglycerin Therapeutic interventions: Introduced self and established rapport, ensured contract for safety, maintained a safe and supportive environment, monitored behaviors and need for intervention, obtained orders for EKG and PRN Nitroglycerin, and maintained Q 15 min safety checks. Restraints/seclusion/emergency medication: N/A Justification of Continued Inpatient Treatment: Pt. requires interruption of current crisis, medication adjustments, and a safe and supportive environment.
[2018-12-13 07:30] VITALS: BP 139/75
[2018-12-13] MEDS: fenofibrate 145mg tablet PO SCH (07:49)
[2018-12-13] MEDS: famotidine 20mg tablet PO SCH ×2 (07:49→20:09)
[2018-12-13] MEDS: amLODIPine 5mg tablet PO SCH (07:49)
[2018-12-13] MEDS: atorvastatin 20mg tablet PO SCH (07:49)
[2018-12-13] MEDS: atenolol 50mg tablet PO SCH (07:50)
[2018-12-13] MEDS: metoprolol succinate 25mg (24-HOUR) SR. Tablet PO SCH (07:50)
[2018-12-13] MEDS: HYDROchlorothiazide 25mg tablet PO SCH (07:50)
--- NOTE | 2018-12-13 13:10 | NUR ---
Nursing Progress Note: Legal hold: 5150 Exp 12/14 @ 1320 Client on involuntary status for DTS. Report received from Nissa Alcaraz RN with use of SBAR. Why are they here: Patient is a 68-year-old male with bipolar disorder and depression who presents to the ED complaining of suicidal ideation with onset 2 days ago after getting into an argument with his sister. Pt states he has a plan of running to a junior copywriter so they would shoot him. Pt is impulsive giving his house away to his sister and nephew. Pt started selling his belongings. Pt does not have a good safety plan. Patient has been seeing a psychologist for the last 3 years for depression and suicidal thoughts. However, his psychologist recently stopped working and the patient has yet to establish with a new one. Patient reports that he stopped taking his lithium but is still taking his Seroquel. Assessment What has happened this shift: Pt denied depression, anxiety, SI/HI/AH/VH. Pt stated he feels "better" today. No c/o chest pain this shift. Pt requested to shower today, cooperative with meds and unit procedures. S/I, H/I: Pt denies. A/VH: Pt denies. Sleep: Pt slept 7 hours per noc shift report ADL's: Independent Group attendance: Yes Were meds taken: Yes though no routine psych meds scheduled in the morning-took his BP meds and his Pepcid. Any med S/E: None reported or observed Mental Status Exam Appearance: Clean, appropriate Eye contact: Good Behavior: Cooperative, friendly, participates in unit activities. Speech: Clear, normal rate and rhythm Mood: Good Affect: Euthymic Thought process: Linear Thought Content: Wants to go home. Cognition: A&O x4 Insight: Fair Judgment: Fair Interventions PRN's used: N/A Therapeutic interventions: 1:1 assessment,encouragement to express thoughts and feelings, therapeutic conversation, medication administration/education/monitoring, Q15 min safety checks Restraints/seclusion/emergency medication: N/A Justification of Continued Inpatient Treatment: Pt needs medication adjustment and monitoring in a safe, therapeutic environment until stable.
[2018-12-13 19:43] VITALS: BP 127/76
[2018-12-13] MEDS: QUEtiapine 25mg tablet PO SCH (20:10)
--- NOTE | 2018-12-13 23:15 | NUR ---
Nursing Progress Note: Legal hold: 5150 Exp 12/14 @ 1320 Client on involuntary status for DTS. Report received from KELECHI Shepard with use of SBAR. Why are they here: Patient is a 68-year-old male with bipolar disorder and depression who presents to the ED complaining of suicidal ideation with onset 2 days ago after getting into an argument with his sister. Pt states he has a plan of running to a copper plate printer so they would shoot him. Pt is impulsive giving his house away to his sister and nephew. Pt started selling his belongings. Pt does not have a good safety plan. Patient has been seeing a psychologist for the last 3 years for depression and suicidal thoughts. However, his psychologist recently stopped working and the patient has yet to establish with a new one. Patient reports that he stopped taking his lithium but is still taking his Seroquel. Assessment What has happened this shift: Pt watching football in rec room at change of shift. pt is pleasant to staff and other pt's and interacts appropriately. pt was friendly and talkative during 1:1 and now denies SI, stating, "I feel a lot better now." pt has plans to have a meeting with his sister and her sons to resolve their recent disagreements and he feels optimistic about it. Pt was compliant with meds. S/I, H/I: Pt denies. A/VH: Pt denies. Sleep: asleep now ADL's: Independent Group attendance: Yes Were meds taken: Yes Any med S/E: None reported or observed Mental Status Exam Appearance: Clean, appropriate Eye contact: Good Behavior: Cooperative, friendly Speech: Clear, normal rate and rhythm Mood: Good Affect: Euthymic Thought process: Linear Thought Content: Wants to go home. Cognition: A&O x4 Insight: Fair Judgment: Fair Interventions PRN's used: N/A Therapeutic interventions: 1:1 assessment,encouragement to express thoughts and feelings, therapeutic conversation, medication administration/education/monitoring, Q15 min safety checks Restraints/seclusion/emergency medication: N/A Justification of Continued Inpatient Treatment: Pt needs medication adjustment and monitoring in a safe, therapeutic environment until stable.
[2018-12-14 08:00] VITALS: BP 124/74
[2018-12-14] MEDS: famotidine 20mg tablet PO SCH ×2 (08:14→20:33)
[2018-12-14] MEDS: HYDROchlorothiazide 25mg tablet PO SCH (08:14)
[2018-12-14] MEDS: atenolol 50mg tablet PO SCH (08:15)
[2018-12-14] MEDS: metoprolol succinate 25mg (24-HOUR) SR. Tablet PO SCH (08:15)
[2018-12-14] MEDS: atorvastatin 20mg tablet PO SCH (08:15)
[2018-12-14] MEDS: fenofibrate 145mg tablet PO SCH (08:15)
[2018-12-14] MEDS: amLODIPine 5mg tablet PO SCH (08:15)
--- NOTE | 2018-12-14 16:47 | NUR ---
Nursing Progress Note: Legal hold: 5150 Exp 12/14 @ 1320 Client on involuntary status for DTS. Report received from KELECHI Cole with use of SBAR. Why are they here: Patient is a 68-year-old male with bipolar disorder and depression who presents to the ED complaining of suicidal ideation with onset 2 days ago after getting into an argument with his sister. Pt states he has a plan of running to a coper hand so they would shoot him. Pt is impulsive giving his house away to his sister and nephew. Pt started selling his belongings. Pt does not have a good safety plan. Patient has been seeing a psychologist for the last 3 years for depression and suicidal thoughts. However, his psychologist recently stopped working and the patient has yet to establish with a new one. Patient reports that he stopped taking his lithium but is still taking his Seroquel. Assessment What has happened this shift: Pt up and visible in the dayroom for breakfast. Pt denies suicidal thoughts and states he is much less depressed. After meeting with provider, pt signed voluntary and found out he was leaving tomorrow and he was super happy, sharing it with staff and peers and thanking staff for how well he was treated. Pt was supportive of his roommate who was emotional when he heard this pt was being dcd tomorrow. S/I, H/I: Pt denies. A/VH: Pt denies. Sleep: no napping ADL's: Independent Group attendance: Yes Were meds taken: Yes though no routine psych meds scheduled in the morning-took his BP meds and his Pepcid. Any med S/E: None reported or observed Mental Status Exam Appearance: Clean, appropriate Eye contact: Good Behavior: Cooperative, friendly, participates in unit activities. Speech: Clear, normal rate and rhythm Mood: Good Affect: Euthymic Thought process: Linear Thought Content: Wants to go home. Cognition: A&O x4 Insight: Fair Judgment: Fair Interventions PRN's used: N/A Therapeutic interventions: 1:1 assessment,encouragement to express thoughts and feelings, therapeutic conversation, medication administration/education/monitoring, Q15 min safety checks Restraints/seclusion/emergency medication: N/A Justification of Continued Inpatient Treatment: Pt needs medication adjustment and monitoring in a safe, therapeutic environment until stable.
[2018-12-14 20:00] VITALS: BP 142/76
[2018-12-14] MEDS: QUEtiapine 25mg tablet PO SCH (20:32)
--- NOTE | 2018-12-14 23:03 | NUR ---
Nursing Progress Note: Legal hold: 5150 Exp 12/14 @ 1320 Client on involuntary status for DTS. Report received from KELECHI Shepard with use of SBAR. Why are they here: Patient is a 68-year-old male with bipolar disorder and depression who presents to the ED complaining of suicidal ideation with onset 2 days ago after getting into an argument with his sister. Pt states he has a plan of running to a copper etcher so they would shoot him. Pt is impulsive giving his house away to his sister and nephew. Pt started selling his belongings. Pt does not have a good safety plan. Patient has been seeing a psychologist for the last 3 years for depression and suicidal thoughts. However, his psychologist recently stopped working and the patient has yet to establish with a new one. Patient reports that he stopped taking his lithium but is still taking his Seroquel. Assessment What has happened this shift: The patient was seen in the Rec room at shift change. He agreed to 1:1 at his bedside. He is calm, cooperative, and in a good mood related to his imminent discharge. The patient reports that he's feeling much better than before. "All I need now is a new therapist when I leave here." He still has issues to resolve with his sister, if he's going to remain living with her. The patient spent the evening watching TV in the group room, then went to bed after HS med pass. S/I, H/I: Denies. A/VH: Denies. Sleep: See sleep hours. ADL's: Independent Group attendance: No groups on weight shifter. Were meds taken: Yes Any med S/E: None reported or observed Mental Status Exam Appearance: Clean, appropriate, well groomed in street clothes. Eye contact: Direct Behavior: Cooperative, friendly Speech: Clear, normal rate and rhythm Mood: "Good" Affect: Euthymic Thought process: Linear Thought Content: Wants to go home. Cognition: A&O x4 Insight: Fair Judgment: Fair Interventions PRN's used: N/A Therapeutic interventions: 1:1 assessment,encouragement to express thoughts and feelings, therapeutic conversation, medication administration/education/monitoring, Q15 min safety checks Restraints/seclusion/emergency medication: N/A Justification of Continued Inpatient Treatment: Pt needs medication adjustment and monitoring in a safe, therapeutic environment until stable.
[2018-12-15] MEDS: amLODIPine 5mg tablet PO SCH (07:44)
[2018-12-15] MEDS: fenofibrate 145mg tablet PO SCH (07:44)
[2018-12-15] MEDS: atenolol 50mg tablet PO SCH (07:44)
[2018-12-15] MEDS: metoprolol succinate 25mg (24-HOUR) SR. Tablet PO SCH (07:45)
[2018-12-15] MEDS: atorvastatin 20mg tablet PO SCH (07:46)
[2018-12-15] MEDS: HYDROchlorothiazide 25mg tablet PO SCH (07:46)
[2018-12-15] MEDS: famotidine 20mg tablet PO SCH (07:46)
[2018-12-15 08:36] VITALS: BP 133/73
[2018-12-15] MEDS ORDERED: QUET25TA34 PO (08:55)
[2018-12-15] MEDS ORDERED: ATOR20TA66 PO (08:55)
[2018-12-15] MEDS ORDERED: ATEN50TA41 PO (08:55)
--- NOTE | 2018-12-15 09:58 | NUR ---
Client discharging home at 1000 hours this am. All belongings have been returned to client satisfaction. Client condition has improved since admission and he no longer is a danger to himself. Discharge plan is to go back to his residence that he occupies with a sister. Client has appointments made for follow up treatment and he is aware of date and provider.He verbally contracted for safe discharge practices and has resources in the event he is unable to control future impulses to harm himself. Client understands the need for continued medications and treatment. All discharge assessment and documentation were completed prior to discharge. Wound picture was taken and placed in chart. Client was escorted from the unit at 1000 hours by
== END 2018-12-15 10:00 | disposition home or self-care (01) | DRG 885 ==
LOC: ADULT MH 10:43
PROVIDERS: ADMIT Psychiatry & Neurology Psychiatry; ATTEND Psychiatry & Neurology Psychiatry
DX: F31.30 Bipolar disorder, current episode depressed, mild or moderate severity, unspecified (principal); R45.851 Suicidal ideations; Z23 Encounter for immunization; E78.1 Pure hyperglyceridemia; E78.5 Hyperlipidemia, unspecified; F17.210 Nicotine dependence, cigarettes, uncomplicated; F41.9 Anxiety disorder, unspecified; I10 Essential (primary) hypertension; I25.10 Atherosclerotic heart disease of native coronary artery without angina pectoris; F12.90 Cannabis use, unspecified, uncomplicated; K21.9 Gastro-esophageal reflux disease without esophagitis; Z88.8 Allergy status to other drugs, medicaments and biological substances; Z79.899 Other long term (current) drug therapy; Z81.8 Family history of other mental and behavioral disorders; Z82.49 Family history of ischemic heart disease and other diseases of the circulatory system
CPT/HCPCS: 36415; 80053; 80061; 80305; 80320; 80329; 81003; 83036; 84443; 85025; 87081; 99285; Q2037

== ENCOUNTER 2019-06-12 07:32 | Emergency (ER) | payer MEDICARE, MEDICAID ==
[~2019-06-12] VITALS: Ht 180.3 cm; Wt 100.0 kg
[~2019-06-12 07:32] MED LIST changes: +ATEN50TA41 PO; +ATOR20TA66 PO; +FENO145T25 PO; +QUET25TA34 PO; -QUET50TA15 PO
[2019-06-12 07:35] VITALS: BP 107/88
== END 2019-06-12 09:13 | disposition home or self-care (01) ==
LOC: ER 07:33
DX: H93.13 Tinnitus, bilateral (principal); H92.03 Otalgia, bilateral; I25.10 Atherosclerotic heart disease of native coronary artery without angina pectoris; E78.00 Pure hypercholesterolemia, unspecified; I10 Essential (primary) hypertension; E11.9 Type 2 diabetes mellitus without complications; G89.29 Other chronic pain; F31.9 Bipolar disorder, unspecified; Z98.890 Other specified postprocedural states; Z88.8 Allergy status to other drugs, medicaments and biological substances; Z79.899 Other long term (current) drug therapy
CPT/HCPCS: 99281

== ENCOUNTER 2019-12-31 07:30 | Emergency (ER) | payer MEDICARE, MEDICAID ==
[~2019-12-31] VITALS: Ht 182.9 cm; Wt 103.0 kg
[~2019-12-31 07:30] MED LIST changes: -ATEN50TA41 PO; -ATOR20TA66 PO; +GABA-530 PO; +NITR0.4T51 SL; +PANT-47 PO; +QUET100T33 PO; -QUET25TA34 PO; -RANI150C4 PO
[2019-12-31 09:07] LABS: CLARITY,URINE CLEAR (Clear); COLOR,URINE YELLOW (Yellow); GLUCOSE, URINE NEGATIVE (Neg); KETONES,URINE NEGATIVE (Neg); LEUKOCYTE ESTERASE ,URINE NEGATIVE (Neg); NITRITES, URINE NEGATIVE (Neg); OCCULT BLOOD,URINE NEGATIVE (Neg); PROTEIN,URINE NEGATIVE (Neg); UA COLLECTION TYPE CLN CATCH MIDSTREAM; UROBILINOGEN,URINE 0.2 E.U/dL (0.2-1.0)
--- NOTE | 2019-12-31 09:15 | NUR ---
agree with geneva's initial assessment
--- NOTE | 2019-12-31 10:00 | NUR ---
tish lee aware of pt's pain in his lower back, he wants to obtain ct and lab results first
[2019-12-31 10:49] LABS: BASOPHILS # (AUTO) 0.1 X10'3 (0-0.2); BASOPHILS % (AUTO) 0.6 % (0-1); EOSINOPHILS # (AUTO) 0.1 X10'3 (0-0.9); EOSINOPHILS % (AUTO) 1.3 % (0-6); HEMATOCRIT 45.1 % (42.0-52.0); HEMOGLOBIN 15.2 g/dl (14.0-17.9); LYMPHOCYTES # (AUTO) 2.9 X10'3 (1.1-4.8); MEAN CORPUSCULAR HEMOGLOBIN 29.7 PG (27.0-31.0); MEAN CORPUSCULAR HGB CONC 33.7 g/dL (33.0-36.5); MEAN CORPUSCULAR VOLUME 88.1 FL (78-98); MEAN PLATELET VOLUME 8.1 FL (7.4-10.4); MONOCYTES # (AUTO) 0.6 X10'3 (0-0.9); MONOCYTES % (AUTO) 6.8 % (2-12); NEUTROPHILS # (AUTO) 5.1 X10'3 (1.8-7.7); NEUTROPHILS % (AUTO) 58.3 % (42-75); PLATELET COUNT 358 X10'3 (140-440); RED BLOOD COUNT 5.12 X10'6 (4.70-6.10); RED CELL DISTRIBUTION WIDTH 15.7 % (11.5-14.5); WHITE BLOOD COUNT 8.7 X10'3 (4.5-11.0)
[2019-12-31 11:08] LABS: ALANINE AMINOTRANSFERASE 39 U/L (12-78); ALKALINE PHOSPHATASE 85 IU/L (46-116); ANION GAP 11 (8-16); ASPARTATE AMINO TRANSFERASE 23 U/L (10-37); BILIRUBIN,TOTAL 0.4 MG/DL (0.1-1.0); BLOOD UREA NITROGEN 17 MG/DL (7-18); BUN/CREATININE RATIO 16.3 (5.4-32.0); CALCIUM 9.3 MG/DL (8.5-10.1); CHLORIDE 108 MMOL/L (99-107); CREATININE 1.04 MG/DL (0.60-1.10); GLUCOSE 106 MG/DL (70-104); POTASSIUM 3.8 MMOL/L (3.5-5.1); SODIUM 143 MMOL/L (135-145); TOTAL CARBON DIOXIDE 23.9 MMOL/L (24-32); TOTAL PROTEIN 8.1 G/DL (6.4-8.2); eGFR 71 ML/MIN
[2019-12-31 11:15] VITALS: BP 128/60
[2019-12-31] MEDS ORDERED: LIDOcaine 5% patch TP ONE (11:15)
[2019-12-31] MEDS ORDERED: ibuprofen tablet 400 MG TABLET PO ONE (11:15)
[2019-12-31] MEDS ORDERED: LIDO700A32 TOP (11:30)
[2019-12-31] MEDS ORDERED: IBUP-1985 PO (11:30)
== END 2019-12-31 11:50 | disposition home or self-care (01) ==
LOC: ER 07:30
DX: M54.5 Low back pain (principal); R10.9 Unspecified abdominal pain; I25.10 Atherosclerotic heart disease of native coronary artery without angina pectoris; E78.00 Pure hypercholesterolemia, unspecified; E11.9 Type 2 diabetes mellitus without complications; I10 Essential (primary) hypertension; G89.29 Other chronic pain; Z98.890 Other specified postprocedural states; Z79.899 Other long term (current) drug therapy; Z88.8 Allergy status to other drugs, medicaments and biological substances
CPT/HCPCS: 36415; 74176; 80053; 81003; 85025; 99284

== ENCOUNTER 2021-10-12 00:06 | Emergency (ER) | payer MEDICARE, MEDICAID ==
[~2021-10-12 00:06] MED LIST changes: +BISO1TAB12 PO; -BISO1TAB4 PO; +IBUP-1985 PO; +LIDO700A32 TOP; -QUET100T33 PO; +QUET100T34 PO
== END 2021-10-12 02:30 | disposition left against medical advice (07) ==
LOC: ER 00:07
DX: N23 Unspecified renal colic (principal); Z53.21 Procedure and treatment not carried out due to patient leaving prior to being seen by health care provider

== ENCOUNTER 2023-06-06 06:47 | Emergency (ER) | payer MEDICARE, MEDICAID ==
[~2023-06-06] VITALS: Ht 182.9 cm; Wt 199.7 kg
[2023-06-06 06:51] VITALS: BP 135/67; PULSE 50; RESP 18; TEMP 97.5; O2SAT 99
[2023-06-06] MEDS ORDERED: AZIT-164 PO (08:24)
[2023-06-06] MEDS: azithromycin 250mg tablet PO ONE (08:40)
[2023-06-06] MEDS: Cipro HC otic suspension 10ML bottle RIGHT EAR SCH (08:40)
== END 2023-06-06 09:01 | disposition home or self-care (01) ==
LOC: ER 06:48
DX: H60.91 Unspecified otitis externa, right ear (principal); E78.00 Pure hypercholesterolemia, unspecified; I10 Essential (primary) hypertension; E11.9 Type 2 diabetes mellitus without complications; F32.A Depression, unspecified; I25.10 Atherosclerotic heart disease of native coronary artery without angina pectoris; Z88.8 Allergy status to other drugs, medicaments and biological substances; Z79.899 Other long term (current) drug therapy; Z79.2 Long term (current) use of antibiotics
CPT/HCPCS: 99283

== ENCOUNTER 2023-06-18 11:15 | Emergency (ER) | payer MEDICARE, MEDICAID ==
[~2023-06-18] VITALS: Ht 180.3 cm; Wt 91.8 kg
[~2023-06-18 11:15] MED LIST changes: +AZIT-164 PO
[2023-06-18 11:18] VITALS: BP 158/65; PULSE 52; O2SAT 97
[2023-06-18] MEDS ORDERED: AMOX-117 PO (12:33)
[2023-06-18] MEDS ORDERED: ACET10DR3 RIGHT EAR (12:33)
[2023-06-18 12:41] VITALS: RESP 18; TEMP 98.2
== END 2023-06-18 12:43 | disposition home or self-care (01) ==
LOC: ER 11:16
DX: H60.91 Unspecified otitis externa, right ear (principal); E78.00 Pure hypercholesterolemia, unspecified; I10 Essential (primary) hypertension; E11.9 Type 2 diabetes mellitus without complications; Z88.8 Allergy status to other drugs, medicaments and biological substances; Z79.899 Other long term (current) drug therapy; Z79.1 Long term (current) use of non-steroidal anti-inflammatories (NSAID); Z79.2 Long term (current) use of antibiotics
CPT/HCPCS: 99283

== ENCOUNTER 2024-09-27 10:21 | Emergency (ER) | payer MEDICARE, MEDICAID ==
[~2024-09-27] VITALS: Ht 182.9 cm; Wt 93.1 kg
[~2024-09-27 10:21] MED LIST changes: +ACET10DR3 RIGHT EAR; -AZIT-164 PO; -IBUP-1985 PO; +IBUP600T52 PO; +LIDO-52 TOP; -LIDO700A32 TOP
[2024-09-27 11:09] LABS: LEUKOCYTE ESTERASE ,URINE NEGATIVE (Neg); NITRITES, URINE NEGATIVE (Neg); OCCULT BLOOD,URINE NEGATIVE (Neg)
[2024-09-27 11:30] LABS: MEAN PLATELET VOLUME 7.7 FL (7.4-10.4); RED CELL DISTRIBUTION WIDTH 13.6 % (11.5-14.5)
[2024-09-27 11:39] LABS: UA COLLECTION TYPE CLN CATCH MIDSTREAM
--- NOTE | 2024-09-27 11:41 | ELECTROCARDIOGRAPH REPORT ---
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
[2024-09-27 11:58] LABS: CREATININE 1.17 MG/DL (0.60-1.10); TOTAL CARBON DIOXIDE 24.4 MMOL/L (24-32); eCRCL 61 ML/MIN; eGFR 61 ML/MIN
--- NOTE | 2024-09-27 12:08 | RADIOLOGY REPORT ---
EXAM: DI CHEST,SINGLE VIEW HISTORY: CP TECHNIQUE: 1 view of the chest COMPARISON: None FINDINGS/IMPRESSION: LUNGS: No pleural effusion, consolidation, or pneumothorax MEDIASTINUM: Unremarkable BONES: No acute osseous abnormality OTHER: None
[2024-09-27 12:24] LABS: PRO BRAIN NATRIURETIC PEPTIDE 35 PG/ML (0-125)
--- NOTE | 2024-09-27 12:41 | RADIOLOGY REPORT ---
Technique: Real-time ultrasound imaging of the abdomen was performed with grayscale and color Doppler . Indication: RUQ abd pain Comparison: CT ABDOMEN PELVIS on DOS: 12/31/19 Findings: Liver measures 21.1 cm. It is increased in echogenicity and echotexture . Overall suboptimal charac terization of the liver parenchyma. Hypoechoic lesion in the liver measuring 1.5 cm.. Portal vein is normal in caliber and demonstrates normal hepatopetal flow. Gallbladder demonstrates no evidence for cholelithiasis. There is no pericholecystic fluid. The wall thickness is normal. The common bile duct measures 8 mm. No intrahepatic biliary ductal dilatation. The right kidney measures 10.1 cm. No hydronephrosis or sonographic evidence of nephrolithiasis. The visualized portion of the pancreas is unremarkable. The visualized portion of the IVC is unremarkable. Impression: Hepatomegaly Echogenic liver which can be seen with hepatic steatosis, cirrhosis. Technically difficult examination due to habitus. Hypoechoic lesion in the liver measuring 1.5 cm. Recommend multiphasic MRI abdomen with and without contrast. Dilated common bile duct measuring 8 mm. This can be further evaluate with MRCP. Recommend GI consu ltation.
--- NOTE | 2024-09-27 13:08 | ELECTROCARDIOGRAPH REPORT ---
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
[2024-09-27] MEDS: normal saline 1000ml 1,000 ML IV STA ×2 (13:45→15:25)
[2024-09-27] MEDS: CefTRIAXone/D5W-Rocephin 1gm 50 ML IV STA (15:24)
[2024-09-27] MEDS ORDERED: ROSU10TA72 PO (16:30)
[2024-09-27] MEDS ORDERED: SPIR25TA5 PO (16:30)
[2024-09-27] MEDS ORDERED: MELO-102 PO (16:30)
--- NOTE | 2024-09-27 17:35 | Physician Documentation ---
History of Present Illness Chief Complaint: Abdominal Pain w/vomiting Stated Complaint: VOMITING Time Seen by MD: 10:32 Primary Medical Doctor: Dr Morejon Mode of Arrival: EMS HPI Patient is seen today with complaints of right upper quadrant abdominal pain off and on for the last month associated with eating. Patient states the pain became much more severe this morning after breakfast is which is what brought him into the ED today. Patient states he feels nauseous and has right upper quadrant abdominal pain denies any shortness of breath or chest pain or diarrhea. Patient has no other concern or complaint at this time. Medication Reconciliation Allergies: Coded Allergies: indomethacin (Verified Allergy, Unknown, BLISTER ON BELLY, 09/27/24) Scheduled Amlodipine Besylate (Amlodipine Besylate), 10 MG PO DAILY, (Reported) Bisoprolol Fumarate/Hctz (Bisoprolol-Hctz 5-6.25 mg Tab), 1 TAB PO DAILY, (Reported) Fenofibrate Nanocrystallized (Fenofibrate), 1 TAB PO DAILY, (Reported) Gabapentin (Gabapentin), 1 CAP PO Q8H, (Reported) Meloxicam (Meloxicam), 1 TAB PO DAILY, (Reported) Pantoprazole Sodium (PROTONIX tablet), 1 TAB PO DAILY, (Reported) Quetiapine Fumarate (Quetiapine Fumarate), 1 TAB PO HS, (Reported) Rosuvastatin Calcium (Rosuvastatin Calcium), 1 TAB PO HS, (Reported) Spironolactone (Spironolactone), 1 TAB PO DAILY, (Reported) Temazepam (Restoril), 15 MG PO HS, (Reported) Scheduled PRN Nitroglycerin SL* (Nitrostat SL*), 1 TAB SL Q5MIN PRN for Chest pain Q5min PRN x3-call MD, (Reported) Discontinued Medications Acetic Acid/Hydrocortisone (Hydrocortison-Acetic Acid Soln), 3 DROP RIGHT EAR Q12H Discontinued Reason: patient no longer taking Ibuprofen (Ibuprofen), 1 TAB PO Q8H Discontinued Reason: patient no longer taking Lidocaine (Lidoderm), 1 PATCH TOP Q12H PRN Discontinued Reason: patient no longer taking Past Medical History Past Medical History: Coronary Artery Disease, High Cholesterol, Hypertension, Diabetes, Chronic Pain, Bipolar, Depression Past Surgical History: orthopedic surgeries Patient History: Patient reports no known family medical history. Smoking Status: Former smoker Alcohol Use: None Drug Use: none Lives In: Home Occupation: retired Review of Systems Constitutional: Denies: chills, fever, weakness Eyes: Denies: pain, blurred vision ENT: Denies: ear pain, nose pain, throat pain, mouth pain Respiratory: Denies: cough, shortness of breath Cardiovascular: Denies: chest pain, palpitations Gastrointestinal: Denies: abdominal pain, nausea, vomiting Genitourinary: Denies: burning, dysuria Male Genitalia: Denies: penile discharge, testicular pain Neurological: Denies: headache, dizziness Musculoskeletal: Denies: pain, swelling Integumentary: Denies: rash, lesions Allergic/Immunologic: Denies: hives, itching Hematologic/Lymphatic: Denies: no symptoms reported Psychiatric: Denies: depression, anxiety Physical Exam Vital Signs: Temperature: 96.3, Source: Temporal, Heart Rate: 114, Respiratory Rate: 18, BP: 115/69, Pulse Oximetry: 98, Weight: 93.090 Oxygen Flow Rate: 4.0 Physical Exam General: Awake and Alert, no acute distress. HEENT: Conjunctiva pink, Sclera clear, Mucus Membranes moist. Neck: Supple without masses and tenderness. Resp: Unlabored. Lungs clear to auscultation bilaterally. Heart: Regular Rate and rhythm, normal S1 and S2 without murmur, rub or gallop. Abdomen: Patient on exam does have tenderness to palpation of the right upper quadrant with positive Sebastian's sign. Abdomen is otherwise soft, nondistended, no guarding, no masses. Extremities: No cyanosis,clubbing or edema. Skin: Warm and Dry. Progress Results/Orders Results/Orders Orders - SHARON STOLL PAC Ultrasound Of Abdomen (09/27/24 10:32) Chest,Single View (09/27/24 11:54) Monitor (09/27/24 11:37) Saline Lock (09/27/24 11:37) Oxygen (09/27/24 11:37) MRCP (09/27/24 13:32) Completed Orders - SHARON STOLL PAC Urinalysis, Cult If Indicated (09/27/24 10:32) Cbc/Diff (09/27/24 10:32) BMP (09/27/24 10:32) Lipase (09/27/24 10:32) CMP (09/27/24 10:32) Ultrasound Of Abdomen (09/27/24 10:32) Lacticsepsis (09/27/24 10:32) Procalcitonin (09/27/24 10:32) Chest,Single View (09/27/24 11:54) Electrocardiogram (09/27/24 11:37) Hs Troponin I W Calculations (09/27/24 11:37) Hs Troponin I W Calculations (09/27/24 13:37) PBNP (09/27/24 11:13) Lactic,2hr (09/27/24 12:51) Electrocardiogram (09/27/24 13:02) Normal Saline 1000ml (0.9% Sodium Chlori (09/27/24 13:27) Normal Saline 1000ml (0.9% Sodium Chlori (09/27/24 13:27) Prochlorperazine Inj (Compazine Inj) (09/27/24 13:32) Ceftriaxone/R6y-Vtnhclzt 1gm (Rocephin 1 (09/27/24 14:57) Prochlorperazine Inj (Compazine Inj) (09/27/24 17:20) Morphine 4mg/Ml Inj. (Morphine Inj.) (09/27/24 17:20) Medications Received in ER Medications (Trade) Dose Ordered Sig/Christiane Route PRN Reason Start Time Stop Time Status Last Admin Dose Admin Sodium Chloride 1,000 ml @ 1,000 mls/hr ONCE STAT IV 09/27/24 13:27 09/27/24 14:26 DC 09/27/24 13:45 1,000 MLS/HR Sodium Chloride 1,000 ml @ 1,000 mls/hr ONCE STAT IV 09/27/24 13:27 09/27/24 14:26 DC 09/27/24 15:25 1,000 MLS/HR (Compazine inj) 10 mg ONCE STAT IV 09/27/24 13:32 09/27/24 13:33 DC 09/27/24 13:42 10 MG Ceftriaxone Sodium 50 ml @ 100 mls/hr ONCE STAT IV 09/27/24 14:57 09/27/24 15:26 DC 09/27/24 15:24 100 MLS/HR Vital Signs 09/27/24 09/27/24 09/27/24 09/27/24 10:25 11:39 12:00 13:00 Temp 96.3 Pulse 45 45 49 Resp 15 19 14 11 B/P (MAP) 147/111 147/75 (99) 129/71 (90) Pulse Ox 99 100 100 O2 Flow Rate 0 09/27/24 09/27/24 09/27/24 13:54 15:26 17:25 Temp 96.3 96.3 96.3 Pulse 52 55 114 Resp 13 16 18 B/P (MAP) 100/81 (87) 148/67 (94) 115/69 (84) Pulse Ox 98 99 98 O2 Flow Rate 0 0 4.0 Laboratory Tests Test 09/27/24 10:39 09/27/24 11:13 09/27/24 13:04 Urine Specimen Description Cln catch midstream Urine Color Yellow Urine Clarity Clear Urine pH 5.5 Urine Specific [place] 1.025 Urine Protein Negative Urine Glucose (UA) Negative Urine Ketones Negative Urine Occult Blood Negative Urine Nitrite Negative Urine Bilirubin Negative Urine Urobilinogen 0.2 Urine Leukocyte Esterase Negative Urine Culture Indicated Not ind Volume Urine Centrifuged 10 ml Urine Comment White Blood Count 11.9 H Red Blood Count 5.32 Hemoglobin 15.6 Hematocrit 47.3 Mean Corpuscular Volume 89.0 Mean Corpuscular Hemoglobin 29.4 Mean Corpuscular Hemoglobin Concent 33.1 Red Cell Distribution Width 13.6 Platelet Count 319 Mean Platelet Volume 7.7 Neutrophils (%) (Auto) 82.7 H Lymphocytes (%) (Auto) 11.4 L Monocytes (%) (Auto) 5.6 Eosinophils (%) (Auto) 0.2 Basophils (%) (Auto) 0.1 Neutrophils # (Auto) 9.9 H Lymphocytes # (Auto) 1.4 Monocytes # (Auto) 0.7 Eosinophils # (Auto) 0.0 Basophils # (Auto) 0.0 CBC Comment Sodium Level 138 Potassium Level 3.9 Chloride Level 103 Carbon Dioxide Level 24.4 Anion Gap 11 Blood Urea Nitrogen 19 H Creatinine 1.17 H Estimated GFR/1.73 m2 61 BUN/Creatinine Ratio 16.2 Glucose Level 163 H Lactic Acid Level 3.4 H 3.6 H Calcium Level 9.6 Total Bilirubin 1.2 H Aspartate Amino Transf (AST/SGOT) 99 H Alanine Aminotransferase (ALT/SGPT) 88 H Alkaline Phosphatase 73 Troponin I High Sensitivity 6 7 Pro-B-Type Natriuretic Peptide 35 Total Protein 8.1 Albumin 4.0 Globulin 4.1 Albumin/Globulin Ratio 1.0 L Lipase 135 H Procalcitonin < 0.05 Chemistry Comments Troponin I High Sens Percent Delta 16 Troponin I Hi Sens Absolute Change 1 EKG/XRAY/CT/US/VASC/MRI Ultrasound : Impression ULTRASOUND Patient: LUIS COONEY Medical Record: [id number] [facility] [place] : 1950, Age: 74 Sex: Male Location: ER Patient Status: [facility] ER Service Date/Time: 09/27/241031 Ordering Physician: SHARON STOLL PAC Exam: ULTRASOUND OF ABDOMEN Technique: Real-time ultrasound imaging of the abdomen was performed with grayscale and color Doppler. Indication: RUQ abd pain Comparison: CT ABDOMEN PELVIS on DOS: 12/31/19 Findings: Liver measures 21.1 cm. It is increased in echogenicity and echotexture . Overall suboptimal characterization of the liver parenchyma. Hypoechoic lesion in the liver measuring 1.5 cm.. Portal vein is normal in caliber and demonstrates normal hepatopetal flow. Gallbladder demonstrates no evidence for cholelithiasis. There is no pericholecystic fluid. The wall thickness is normal. The common bile duct measures 8 mm. No intrahepatic biliary ductal dilatation. The right kidney measures 10.1 cm. No hydronephrosis or sonographic evidence of nephrolithiasis. The visualized portion of the pancreas is unremarkable. The visualized portion of the IVC is unremarkable. Impression: Hepatomegaly Echogenic liver which can be seen with hepatic steatosis, cirrhosis. Technically difficult examination due to habitus. Hypoechoic lesion in the liver measuring 1.5 cm. Recommend multiphasic MRI abdomen with and without contrast. Dilated common bile duct measuring 8 mm. This can be further evaluate with MRCP. Recommend GI consultation. Electronically Signed by:JENNIFER ARCINIEGA MD Date & Time: 09/27/24 1241 Dictated by: JENNIFER ARCINIEGA MD Dictation date and time: 09/27/24 1241 Primary Care Provider: NO PRIMARY CARE PROVIDER cc: SHARON STOLL PAC ~ Medical Decision Making Findings Patient is seen today with complaints of right upper quadrant abdominal pain off and on for the last month associated with eating. Patient states the pain became much more severe this morning after breakfast is which is what brought him into the ED today. Patient states he feels nauseous and has right upper quadrant abdominal pain denies any shortness of breath or chest pain or diarrhea. Patient has no other concern or complaint at this time. Patient did have labs drawn that did show elevated lipase of 135, mildly elevated liver enzymes, total bili at 1.2. Ultrasound of abdomen showed dilation of the common bile duct at 8 mm. Radiologist recommended MRCP, MRCP was ordered. Patient did receive 10 mg of Compazine IV which did help reduce his nausea and vomiting significantly patient also received 4 mg of morphine for pain. Patient did eventually receive another 10 mg of Compazine IV [address] Salcedo receiving care of patient: Followed up MRCP which was negative for obstructive stone. Mild elevation of transaminases which might represent viral syndrome. Patient concerned he might be suffering from an ulcer therefore we will treat empirically for gastritis. He does have a doctor and has been instructed that he needs to call tomorrow to arrange for follow up. Ultrasound reassuring for no cholecystitis. Symptoms has been going on for the past six months worse the past month and he had not feel he requires emergent CT scan at this time. ER precautions discussed. Patient does exhibit mild elevation of lipase however that has not 3 times the upper limit of normal and he had not feel he is suffering from pancreatitis. Differential Dx:Considerations: Include: AAA, Aortic dissection, Appendicitis, Bowel obstruction, Cholelithasis, Constipation, Diverticular disease, Pancreatitis, Urinary obstruction, Urinary tract infection Departure Disposition: 01 HOME / SELF CARE / HOMELESS Impression: Primary Impression: Abdominal pain Additional Impression: Vomiting Condition: Fair Discharge Instructions: Gastritis, Adult Additional Instructions: Call your doctor tomorrow to let them know you went to an emergency room and he had to be seen sooner rather than later. Return for fevers or worsening of symptoms Referrals: NO PRIMARY CARE PROVIDER (PCP) Prescriptions Pantoprazole Sodium (Protonix) 20 Mg Tablet.dr Patel TAB PO DAILY for 30 Days, #30 TAB 0 Refills Prov: MALCOM SALCEDO MD 09/27/24 Ondansetron 8mg ODT (Ondansetron Odt) 8 Mg Tab.rapdis 1 TAB PO Q6H for nausea/vomiting for 3 Days, #12 TAB 0 Refills Prov: MALCOM SALCEDO MD 09/27/24 Education Educated: Patient Educated regarding: diagnosis, treatment, need for follow up Signature Scribe Signature: No scribe Attestation: The note accurately reflects work and decisions made by me.Malcom Salcedo MD 09/27/24 21:04 No scribe SHARON STOLL Sep 27, 2024 17:35 MALCOM SALCEDO MD Sep 27, 2024 21:03
[2024-09-27] MEDS: morphine 4 MG/ML inj SYRINge IV STA (17:39)
[2024-09-27] MEDS: diazepam inj 5 MG/ML inj. IV STA (19:18)
[2024-09-27] MEDS: diazepam inj 5 MG/ML inj. IV ONE (20:21)
--- NOTE | 2024-09-27 20:28 | RADIOLOGY REPORT ---
CLINICAL HISTORY: dilated common bile duct. TECHNIQUE: MRI and MRCP of the abdomen was performed without gadolinium. 3D reconstructed images wer e created under concurrent radiologist supervision and archived on the PACS system. COMPARISON: US ULTRASOUND OF ABDOMEN on DOS: 09/27/24, CT ABDOMEN PELVIS on DOS: 12/31/19 FINDINGS: Evaluation is limited secondary to image degradation secondary to patient motion. There are T2 hyperintense lesions in both kidneys and the liver which are incompletely characterized due to lack of IV contrast. The pancreas appears inflamed with a small amount of paint pancreatic fluid descends into the left pe ricolic gutter. There is moderate gallbladder mural edema. The common duct is normal in caliber, measuring 5 mm. No i ntraductal filling defect to suggest a stone is seen. Dominant l aorta is normal in course and caliber. No enlargement is seen. IMPRESSION: Limited exam. Acute pancreatitis. Moderate gallbladder mural edema. Normal caliber 5 mm common duct. No intraductal filling defects to suggest a stone.
[2024-09-27] MEDS: morphine 4 MG/ML inj SYRINge IV ONE (20:49)
[2024-09-27] MEDS ORDERED: ONDA-245 PO (21:04)
[2024-09-27] MEDS ORDERED: PANT20TA18 PO (21:04)
[2024-09-27] MEDS: famotidine/PF 10 mg/ml inj IV ONE (21:18)
[2024-09-27] MEDS: pantoprazole 40mg Tablet.DR PO ONE (21:22)
[2024-09-27] MEDS: LIDOcaine 2% Viscous 15ml cup MM ONE (21:22)
[2024-09-27] MEDS: mag hydrox/Alum hydrox/simeth 30ml oral suspension PO ONE (21:23)
[2024-09-27 21:25] VITALS: BP 127/76; PULSE 65; RESP 12; TEMP 96.3; O2SAT 95
== END 2024-09-27 21:26 | disposition home or self-care (01) ==
LOC: ER 10:21
DX: R10.11 Right upper quadrant pain (principal); R06.02 Shortness of breath; E11.9 Type 2 diabetes mellitus without complications; E78.00 Pure hypercholesterolemia, unspecified; I10 Essential (primary) hypertension; I25.10 Atherosclerotic heart disease of native coronary artery without angina pectoris; Z88.8 Allergy status to other drugs, medicaments and biological substances
CPT/HCPCS: 36415; 71045; 74181; 76700; 80053; 81003; 83605; 83690; 83880; 84145; 84484; 85025; 93005; 96361; 96365; 96375; 96376; 99285; J0696; J0780; J2270; J3360; J7030